=== PATIENT | male | born 1995 | race African-American/Black ===

== ENCOUNTER 2016-10-28 10:23 | Emergency (ER) | payer OTHER ==
[~2016-10-28] VITALS: Ht 182.9 cm; Wt 99.8 kg
[~2016-10-28 10:23] MED LIST: FLEXERIL PO; NAPROSYN500 MG PO; NOHOMEMEDICATIONS
[2016-10-28] MEDS ORDERED: TESSALON PERLE100 MG PO (11:51)
[2016-10-28 12:03] VITALS: BP 153/98
== END 2016-10-28 12:06 | disposition home or self-care (01) ==
LOC: ER 10:23
DX: J40 Bronchitis, not specified as acute or chronic (principal); F17.210 Nicotine dependence, cigarettes, uncomplicated; F10.99 Alcohol use, unspecified with unspecified alcohol-induced disorder